=== PATIENT | male | born 1985 | race Caucasian/White ===

== ENCOUNTER 2018-01-29 06:09 | Emergency (ER) | payer MEDICAID ==
[~2018-01-29] VITALS: Ht 170.2 cm; Wt 81.6 kg
[~2018-01-29 06:09] MED LIST: NORCO5 PO; PENICILLIN PO; [UNRECOGNIZED DRUG - REMARK]
[2018-01-29 06:10] VITALS: BP_SYST 147
[2018-01-29 07:16] VITALS: BP_SYST 121
== END 2018-01-29 07:16 | disposition home or self-care (01) ==
LOC: SED 06:09
DX: J02.8 Acute pharyngitis due to other specified organisms (principal); B97.89 Other viral agents as the cause of diseases classified elsewhere
CPT/HCPCS: 36415; 86403; 87081; 99284

== ENCOUNTER 2019-12-03 20:36 | Emergency (ER) | payer MEDICAID ==
[~2019-12-03] VITALS: Ht 172.7 cm; Wt 95.7 kg
[2019-12-03 20:45] VITALS: BP_SYST 115
[2019-12-03] MEDS ORDERED: KETOROLAC TROMETHAMINE 30 MG VIAL IM ONE (21:00)
[2019-12-03] MEDS ORDERED: HYDROcodone/ACETAMIN 5-325 MG TAB (NORCO/ VICODIN) PO ONE (21:00)
[2019-12-03] MEDS ORDERED: fentaNYL CITRATE/PF 100 MCG/2 ML AMP IM ONE (22:30)
[2019-12-03 23:50] VITALS: BP_SYST 115
== END 2019-12-03 23:50 | disposition home or self-care (01) ==
LOC: SED 20:36
DX: S82.142A Displaced bicondylar fracture of left tibia, initial encounter for closed fracture (principal); W11.XXXA Fall on and from ladder, initial encounter; Y93.89 Activity, other specified; Y92.89 Other specified places as the place of occurrence of the external cause; Y99.8 Other external cause status
CPT/HCPCS: 29505; 73564; 96372; 99284; J1885; J3010

== ENCOUNTER 2022-05-04 22:42 | Emergency (ER) | payer MEDICAID ==
[~2022-05-04] VITALS: Ht 180.3 cm; Wt 98.0 kg
[2022-05-04 23:29] VITALS: BP_SYST 145
--- NOTE | 2022-05-04 23:34 | NUR ---
Patient triaged and placed in waiting room. VS checked and patient appears in no acute distress at this time. Accompanied by family, awaiting available bed, and MD notified of need for MSE.
--- NOTE | 2022-05-04 23:35 | NUR ---
Patient came in to the emergency department with complains of tooth pain, lower front, since Tuesday. Patient has been taking Ibuprofen 800 mg, last dose 30 mins [employer] with some relief. Patient on antibiotics, scheduled for root canal. Patient AAO x 4, breathing easy. Awaiting ER MD to jai Denies medical history, +surgery to left tibia 3 years ago.
[2022-05-05] MEDS ORDERED: MORPHINE 4 MG INJ. 4 MG/ML VIAL IM ONE (00:45)
--- NOTE | 2022-05-05 01:06 | NUR ---
Patient ambulatory to bed hallway 1
--- NOTE | 2022-05-05 02:04 | NUR ---
Patient given written and verbal discharge instructions and verbalizes understanding. ER MD discussed with patient the results and treatment provided. Patient in stable condition. ID arm band removed. IV catheter removed intact and dressing applied, no active bleeding. Rx of given. Patient educated on pain management and to follow up with PMD. Pain Scale . Opportunity for questions provided and answered. Medication side effect fact sheet provided.
== END 2022-05-05 02:03 | disposition home or self-care (01) ==
LOC: SED 22:42
DX: K04.6 Periapical abscess with sinus (principal); K08.89 Other specified disorders of teeth and supporting structures; Z79.899 Other long term (current) drug therapy
CPT/HCPCS: 99284; 64400; 96372; J2270

== ENCOUNTER 2022-11-20 00:55 | Emergency (ER) | payer OTHER, MEDICAID ==
[~2022-11-20] VITALS: Ht 180.3 cm; Wt 93.4 kg
[2022-11-20 01:23] VITALS: BP_SYST 130
--- NOTE | 2022-11-20 01:23 | NUR ---
Pt triaged by RN and taken to bed 8
--- NOTE | 2022-11-20 01:30 | NUR ---
Pt bib from work, ambulated to bed 8. Pt A&Ox4, able to make needs known. Pt c/o laceration on right ring finger due to an injury at work. Pt denies pain at this time. Pt states he feels discomfort. Pt states Tdap up to date. Pt denies SOB and chest pain. Pt denies N/V/D. Safety measures in place.
--- NOTE | 2022-11-20 01:53 | NUR ---
ER Dr. Landers at bedside examining patient.
[2022-11-20] MEDS ORDERED: LIDOCAINE 1% 10 MG/ML, 20 ML MDV INJ ONE (02:00)
[2022-11-20] MEDS ORDERED: BACITRACIN 1 GM OINT TP ONE (02:30)
[2022-11-20 02:56] VITALS: BP_SYST 132
--- NOTE | 2022-11-20 02:56 | NUR ---
Patient given written and verbal discharge instructions and verbalizes understanding. ER Dr Landers discussed with patient the results and treatment provided. Patient in stable condition. ID arm band removed. IV catheter removed intact and dressing applied, no active bleeding. Patient educated on pain management and to follow up with PMD. Opportunity for questions provided and answered. Medication side effect fact sheet provided.
== END 2022-11-20 02:56 | disposition home or self-care (01) ==
LOC: SED 00:55
DX: S61.214A Laceration without foreign body of right ring finger without damage to nail, initial encounter (principal); Z88.0 Allergy status to penicillin; Z88.1 Allergy status to other antibiotic agents; Z79.899 Other long term (current) drug therapy; W31.1XXA Contact with metalworking machines, initial encounter; Y93.89 Activity, other specified; Y92.89 Other specified places as the place of occurrence of the external cause; Y99.8 Other external cause status
CPT/HCPCS: 99282